=== PATIENT | female | born 1955 | race Caucasian/White ===

== ENCOUNTER 2020-11-29 02:36 | Outpatient (CLI) | payer MEDICARE, SELFPAY ==
[2020-11-29 18:12] LABS: SARS-CoV-2 RNA PCR Negative
== END 2020-11-29 02:37 | disposition home or self-care (01) ==
LOC: ANHCOVIDDT 02:38
PROVIDERS: Visit Provider Urology
DX: Z01.812 Encounter for preprocedural laboratory examination (principal); Z20.822 Contact with and (suspected) exposure to COVID-19
CPT/HCPCS: C9803; U0003; U0005

== ENCOUNTER 2020-12-02 00:51 | Day surgery (SDC) | payer MEDICARE, SELFPAY ==
[2020-11-18 11:09] VITALS: BMI 26.6
--- NOTE | 2020-11-27 15:34 | PM.IMHP ---
H&P: HPI History of Present Illness Date/Time: 11/27/20 15:34 Chief Complaint: DARION Narrative: Katt Urrutia is a 65 year old female with DARION Review of Systems Review of Systems: All systems reviewed & are unremarkable except as noted in HPI and below PMFSH Social History Social History Smoking status: Never smoker Spiritual care concerns: No Meds Home Medications and Allergies Home Medications Medication Instructions Recorded Confirmed Type albuterol sulfate [ProAir HFA] 1 puff INHALATION PRN PRN 11/18/20 11/18/20 History docusate sodium [Colace] 300 mg PO HS 11/18/20 11/18/20 History magnesium 400 mg PO DAILY 11/18/20 11/18/20 History melatonin 10 mg PO HS 11/18/20 11/18/20 History pantoprazole 40 mg PO DAILY 11/18/20 11/18/20 History Allergies Allergy/AdvReac Type Severity Reaction Status Date / Time No Known Allergies Allergy Verified 11/18/20 10:41 Exam Const: General: cooperative, healthy appearing, comfortable and no acute distress HENMT: Head: normal to inspection Eyes: General: appearance normal, both eyes and all related structures Neck: Neck: normal visual inspection Resp: Effort & Inspection: normal respiratory effort and able to speak in complete sentences : General: Yes no CVA tenderness External Female Exam: normal appearance of the urethra Speculum Exam - Vagina: vagina atrophic and other (narrow introitus) Psych: Appearance: grossly normal Assessment and Plan Assessment and plan (1) DARION (stress urinary incontinence, female): Code(s): N39.3 - Stress incontinence (female) (male) Status: Acute Assessment and Plan: urethral sling
--- NOTE | 2020-12-01 14:28 | WPDANESEPPF ---
Anes - Initial Pre Proc Eval Procedure: Operation Date: 12/02/20 08:15 Proposed Procedures p Urethral Sling - Sammy Starks MD Date/Time: 12/01/20 14:28 Surgeon: Sammy Starks MD Pre Op Diagnosis: Stress Incontinence Patient Data Age: 65 Gender: F Height: 1.57 m Weight: 66.22 kg Allergies Allergy/AdvReac Type Severity Reaction Status Date / Time No Known Allergies Allergy Verified 12/02/20 07:08 Home Medications Medication Instructions Recorded Confirmed Type albuterol sulfate [ProAir HFA] 1 puff INHALATION PRN PRN 11/18/20 11/18/20 History docusate sodium [Colace] 300 mg PO HS 11/18/20 11/18/20 History magnesium 400 mg PO DAILY 11/18/20 11/18/20 History melatonin 10 mg PO HS 11/18/20 11/18/20 History pantoprazole 40 mg PO DAILY 11/18/20 11/18/20 History Patient hx anesthesia problems: none Family hx anesthesia problems: none [facility] Past Medical History Medical History (Updated 12/01/20 @ 14:29 by Faraz Lee MD) Asthma Breast cancer DARION (stress urinary incontinence, female) Social History Social History Smoking status: Never smoker Living arrangements: with family Spiritual care concerns: No Anes - Eval Final PreProcedure Day of Procedure 12/01/20 14:28 Patient weight: overweight Heart: regular rate and rhythm Lungs: clear to auscultation and normal air movement Airway: Mallampati scale class II Neurological: alert and oriented Last oral intake: >/= 8 hours ASA classification: III Emergent: no Anesthetic plan: proceed Anesthesia type and monitoring: general LMA Informed Consent: The patient's anesthetic plan and its attendant risks and benefits were discussed with the patient/family/POA. Questions were solicited and answers provided to the satisfaction of the patient/family/POA.
--- NOTE | 2020-12-02 05:00 | WPDHPUPDATE1 ---
History and Physical Update Update Date/Time: 12/02/20 05:00 History and Physical has been reviewed, including an updated exam of the patient. There are NO changes in the patient's condition. Risks, benefits, and alternatives have been discussed and questions answered. Patient agrees to proceed with procedure.
[2020-12-02 06:14] VITALS: BP 150/79; PULSE 56; RESP 20; TEMP 36.7; O2SAT 100
[2020-12-02] MEDS: LACTATED RINGERS 1,000 ML 30 ML IV CONT (06:50)
[2020-12-02] MEDS: ceFAZolin 2 GM/D5W 50 ML 2 GM/50 ML BAG IVPB (08:12)
[2020-12-02] MEDS: BUPIVACAINE/EPINEPHRINE 0.5% 10 ML VIAL INFILTRATE (08:27)
--- NOTE | 2020-12-02 08:35 | PM.PROC ---
Procedure Note - Detailed Date of procedure: 12/02/20 Pre-op diagnosis: Stress Incontinence Stress urinary incontinence Post-op diagnosis: same Procedure performed: Transobturator Mid-urethral sling Cystoscopy Description of procedure: Anesthesia: Mac/local This is a patient with confirmed stress urinary incontinence. She desires correction. She understands the risks of bleeding, infection, damage to the urinary tract, lack of cure of stress incontinence, recurrence of stress incontinence, postoperative voiding dysfunction including incontinence and retention, need for ancillary procedures to loosen remove the sling, postoperative voiding dysfunction including retention and overactive bladder, hip and leg pain, dyspareunia, mesh related complications including exposure and extrusion. She agrees to proceed. She understands it will not help overactive bladder symptoms if present. She was correctly identified and informed consent obtained. She is brought to the operating room. She was given appropriate anesthesia. She was placed in the dorsal lithotomy position. All pressure points were padded. She was given appropriate perioperative antibiotics and a time-out performed. A Wong catheter is placed. I marked out the thigh incisions anesthetize the skin and made those incisions. I anesthetized the anterior vaginal wall over the mid urethra. I made a 1 cm incision. I dissected out laterally taking great care not to injure the urethra or the vaginal wall. Passed the helical trocars 1st on the left and then on the right from the thigh incision towards the vaginal incision. Sling was connected to the trocars and brought out through the thigh incision. I tensioned the sling appropriately. I cut and removed the plastic sheaths. I closed the incision with 2 0 Vicryl. I then performed cystoscopy. There was no surgical artifact or abnormalities inside the bladder. The urethra was normal without surgical artifact. I cut the excess sling material. I closed the incisions with glue. She was awakened and transferred to the PACU in stable condition. Implants: Mid urethral sling Surgeon: Sammy Starks MD Drains: No Packing: No Pathology: none sent Complications: No immediate complications Condition: stable Disposition: PACU
[2020-12-02 08:40] VITALS: BP 108/60; PULSE 62; RESP 14; O2SAT 96
[2020-12-02 09:10] VITALS: BP 140/64; PULSE 46; RESP 20
[2020-12-02 09:35] VITALS: BP 155/74; PULSE 49; RESP 20
== END 2020-12-02 09:50 | disposition home or self-care (01) ==
PROVIDERS: PCP Family Medicine; Visit Provider Urology
PROC: (CPT 57288; principal; 2020-12-02 08:15)
DX: N93.9 Abnormal uterine and vaginal bleeding, unspecified (principal); Z79.51 Long term (current) use of inhaled steroids; J45.909 Unspecified asthma, uncomplicated
CPT/HCPCS: 57288; A9270; C1771; C9803; J0690; J2704; J3010; J7030; J7120; U0003; U0005